=== PATIENT | male | born 1990 | race Caucasian/White ===

== ENCOUNTER → 2017-08-24 | Outpatient (CLI) | payer OTHER ==
--- NOTE | 2017-08-24 16:41 | DIAGNOSTIC IMAGING REPORT ---
SINUS CT CT DOSE: 253.14 mGycm HISTORY: CHRONIC SINUSITIS W/HEADACHE TECHNIQUE: Multiaxial CT images of the paranasal sinuses were performed and reformatted in the coronal plane without the use of contrast. A dose lowering technique was utilized adhering to the principles of ALARA. COMPARISON: None. FINDINGS: Minimal mucosal thickening within the right frontal sinus. A 6 mm retention cyst within a right ethmoid air cell. The remaining ethmoid air cells, sphenoid sinuses, and left max a sinus are clear. Minimal mucosal thickening within the floor of the right maxillary sinus. The visualized mastoid air cells are clear. No fluid levels within the paranasal sinuses. The bilateral ostiomeatal units are patent. Mild right nasal septal deviation. The right anterior clinoid is pneumatized. The visualized brain parenchyma is within normal limits. The orbits are unremarkable. IMPRESSION: 1. Minimal chronic sinus disease as described above. 2. No fluid levels within the paranasal sinuses. 3. Mild right nasal septal deviation. Electronically signed by: Boris Hermosillo M.D. 08/24/2017 4:39 PM Dictated Date/Time: 08/24/2017 4:33 PM
== END | disposition home or self-care (01) ==
LOC: C.CTS 16:14
PROVIDERS: ATTEND Physician Assistant
DX: J32.9 Chronic sinusitis, unspecified (principal); R51 Headache

== ENCOUNTER 2019-04-17 11:18 | Inpatient (IN) ==
--- OUTSIDE RECORDS SUMMARY | 2019-04-17 11:21 | External Medical Summary | Continuity of Care Document ---
:1990 Author Name Eusebia Reyez, Provider Address Unavailable Unavailable , Care Team Providers Name Role Phone Rocky Robles [email or web address] [email or web address] [place] Unavailable Unavailable Assessments Assessed Problems:Nasal septal deviationHypertrophy of both inferior nasal turbinates Problems Hypertrophy of both inferior nasal turbinates (478.0) (J34.3 ) Nasal septal deviation (470) (J34.2) Allergies and Adverse Reactions No Known Drug Allergies (Allergy) Medications No Reported Medications Refills: 0 Procedures Procedures not documented Immunizations Immunizations not documented Family History Unknown Family Member No pertinent family history (V49.89) Status: Active Com ments: Maternal Relatives (Z78.9) No pertinent family history (V49.89) Status: Active Com ments: Paternal Relatives (Z78.9) Social History - Smoking Status Former smoker Plan of Treatment Planned Observations Planned Goals not documented Results No Known Results Results not documented Encounters Appointment; Rocky Robles M.D. 27-Sep-2017 14:30 Encounter Diagnosis: Problem not documented
[2019-04-17 12:36] LABS: Appearance Urine Clear (Clear); Bilirubin Urine Negative (Negative); Blood Urine Negative (Negative); Color Urine Yellow; Glucose Urine UA Negative (Negative); Ketones Urine Negative (Negative); Leukocyte Esterase Urine Negative (Negative); Nitrite Urine Negative (Negative); Protein Urine Negative (Negative); Urobilinogen Urine Negative (Negative)
[2019-04-17 12:58] LABS: Amphetamines+Metham, Urine Neg (Neg); Barbiturates, Urine Neg (Neg); Benzodiazepine, Urine Neg (Neg); Cocaine, Urine Neg (Neg); MDMA (Ecstacy), Urine Neg (Neg); Methadone, Urine Neg (Neg); Opiate, Urine Neg (Neg); Phencyclidine, Urine Neg (Neg)
[2019-04-17 13:14] LABS: Albumin Level 4.3 gm/dl (3.4-5.0); Calcium 9.1 mg/dl (8.5-10.1); Creatinine Clr Calc Pharmacy 155.5 ml/min; Est GFR (African American) 137.8; Est GFR (Non-African American) 118.9; Potassium 3.4 mmol/L (3.5-5.1)
[2019-04-17 13:15] LABS: Acetaminophen < 2 ug/ml (10-30); Salicylate < 1.7 mg/dl (2.8-20)
[2019-04-17 13:17] LABS: Hematocrit (blood only) 43.7 % (42-52); Hemoglobin 16.1 g/dL (14.0-18.0); Mean Corpuscular Hemoglobin 31.1 pg (25-34); Mean Corpuscular Hgb Conc 36.8 g/dL (32-36); Mean Corpuscular Volume 84.4 fL (80-100); Mean Platelet Volume 10.6 fL (7.4-10.4); Platelet Count 251 K/uL (130-400); RDW Coefficient of Variation 11.7 % (11.5-14.5); RDW Standard Deviation 35.9 fL (36.4-46.3); Red Blood Count 5.18 M/uL (4.7-6.1); White Blood Count 4.55 K/uL (4.8-10.8)
[2019-04-17 13:18] LABS: Basophils # (auto) 0.03 K/uL (0-0.2); Basophils % (auto) 0.7 %; Eosinophils # (auto) 0.02 K/uL (0-0.5); Eosinophils % (auto) 0.4 %; Immature Granulocytes # (auto) 0.01 K/uL (0.00-0.02); Immature Granulocytes % (auto) 0.2 %; Lymphocytes # (auto) 1.77 K/uL (1.2-3.4); Lymphocytes % (auto) 38.9 %; Monocytes # (auto) 0.32 K/uL (0.11-0.59); Neutrophils % (auto) 52.8 %; RBC Morphology Unremarkable
[2019-04-17 13:25] LABS: Albumin Globulin Ratio 1.2 (0.9-2); Bilirubin,Total 0.6 mg/dl (0.2-1); Globulin 3.7 gm/dl (2.5-4.0); Thyroid Stimulating Hormone 2.13 uIu/ml (0.300-4.500)
--- NOTE | 2019-04-17 16:12 | Emergency Department Note ---
Entered by Harpreet Stanley acting as a scribe for Twan Boone DO History of Present Illness General Chief complaint: Mental Health Evaluation Stated complaint: MENTAL HEALTH EVAL Time Seen by Provider: 04/17/19 11:36 Source: patient History of Present Illness Provider complaint: mental health Onset (ago): hour(s) less than 1 Location: head Pain Consistency: + now resolved Quality: + other (mental health ) Associated symptoms: + denies other symptoms The patient is a 28 y/o male who presents to the emergency department for a mental health evaluation. The nurse from [facility] states that he has been having suicidal ideation for the past month and with it being worse last night. He states that he had been researching where to get a gun. The patient notes that he overdosed on blood pressure medication once in the past roughly 7 years ago when he was still living in [facility] which he did voluntary inpatient treatment for. The nurse notes that he came from [facility] at [facility]. 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 The patient expressed that he is having a lot of pressure with school and went to [facility] to get help with the stress and possibly an excuses for class. He notes he exaggerated the SI at [facility] in order to get the class assistance and they sent him to the ED. The patient denies any other symptoms. Home Medications Home Medications Medication Instructions Recorded Confirmed Type No Known Home Medications 04/17/19 04/17/19 History Allergies Allergy/AdvReac Type Severity Reaction Status Date / Time No Known Allergies Allergy Unverified 04/17/19 11:57 Past Med/Surg History Medical History No pertinent family history Social History Feels Safe at Home: Yes Smoking Status: Former smoker Review of Systems See HPI for pertinent positives & negatives. and A total of 10 systems reviewed and were otherwise negative Physical Exam Vital Signs Vital Signs - 24 hr 04/17/19 11:28 04/17/19 14:18 Temperature 36.7 C Temperature Source Oral Sepsis Recent Fever Within 48 Hours No Sepsis Action Taken by Nursing No Action Required Pulse Rate 66 Pulse Rate [Left Finger] 66 Respiratory Rate 16 20 Respiratory Effort / Characteristics Non-Labored Spontaneous Non-Labored Spontaneous Respiratory Depth Normal Normal Respiratory Pattern Regular Blood Pressure 173/79 H Blood Pressure [Left Arm] 133/83 Blood Pressure Mean 110 Blood Pressure Mean [Left Arm] 99 Blood Pressure Position Sitting Pulse Oximetry 99 97 Oxygen Delivery Method Room Air Room Air GENERAL: Patient is awake, alert, and in no acute distress.Patient is resting comfortably and showing no signs of anxiety EYES: The conjunctivae are clear. The pupils are round and reactive. EARS, NOSE, MOUTH AND THROAT: The nose is without any evidence of any deformity. Mucous membranes are moist.Tongue is midline NECK: The neck is nontender and supple. RESPIRATORY: Normal respiratory effort is noted. There is no evidence of wheezing rhonchi or rales to auscultation. CARDIOVASCULAR: Regular rate and rhythm noted. There no murmurs rubs or gallops normal S1 normal S2 GASTROINTESTINAL: The abdomen is soft. Bowel sounds are present in all quadr ants. Abdomen is nontender. MUSCULOSKELETAL/EXTREMITIES: There is no evidence of gross deformity. Full range of motion is noted in the hips and shoulders. SKIN: There is no obvious evidence of any rash. There are no petechiae, pallor or cyanosis noted. NEUROLOGIC: Patient is awake alert and oriented x3. PSYCH: Pt was awake and alert, makes good eye contact on exam. Denies SI. Admits to many stressors Course 1208: Past medical records reviewed. The patient was evaluated in room A05. A complete history and physical exam was performed. 1437: I spoke with the psychiatric immigration case manager regarding the patient. CAPS noted 2 overdose attempts and increased depression with negative feelings towards [facility] from the patient beyond what he informed us of. 1700: I spoke with the patient and updated him on the treatment plan. []: The patient was accepted to [address] [place] [address]. Medical Decision Making Differential Diagnosis differential includes toxic ingestions, self-mutilation, suicidal ideation, suicide attempt, depression. Medical Records Attestation: I reviewed the patient's medical records. Home Medications Current Medication List: was personally reviewed by me Laboratory Data Attestation: I reviewed the patient's lab results. Result diagrams: 04/17/19 12:35 04/17/19 12:35 Lab Results 04/17/19 04/17/19 04/17/19 Range/Units 12:06 12:06 12:35 WBC 4.55 L (4.8-10.8) K/uL RBC 5.18 (4.7-6.1) M/uL Hgb 16.1 (14.0-18.0) g/dL Hct 43.7 (42-52) % MCV 84.4 (80-100) fL MCH 31.1 (25-34) pg MCHC 36.8 H (32-36) g/dL RDW Std Deviation 35.9 L (36.4-46.3) fL RDW Coeff of Thomas 11.7 (11.5-14.5) % Plt Count 251 (130-400) K/uL MPV 10.6 H (7.4-10.4) fL Immature Gran % (Auto) 0.2 % Neut % (Auto) 52.8 % Lymph % (Auto) 38.9 % [place] % (Auto) 7.0 % Eos % (Auto) 0.4 % Baso % (Auto) 0.7 % Immature Gran # (Auto) 0.01 (0.00-0.02) K/uL Neut # (Auto) 2.40 (1.4-6.5) K/uL Lymph # (Auto) 1.77 (1.2-3.4) K/uL [place] # (Auto) 0.32 (0.11-0.59) K/uL Eos # (Auto) 0.02 (0-0.5) K/uL Baso # (Auto) 0.03 (0-0.2) K/uL RBC Morphology Unremarkable Sodium (136-145) mmol/L Potassium (3.5-5.1) mmol/L Chloride (98-107) mmol/L Carbon Dioxide (21-32) mmol/L Anion Gap (3-11) BUN (7-18) mg/dl Creatinine (0.6-1.4) mg/dl Est Cr Clr Drug Dosing ml/min Est GFR ( Amer) Est GFR (Non-Af Amer) BUN/Creatinine Ratio (10-20) Glucose (70-99) mg/dl Calcium (8.5-10.1) mg/dl Total Bilirubin (0.2-1) mg/dl AST (15-37) U/L ALT (12-78) U/L Alkaline Phosphatase (45-117) U/L Total Protein (6.4-8.2) gm/dl Albumin (3.4-5.0) gm/dl Globulin (2.5-4.0) gm/dl Albumin/Globulin Ratio (0.9-2) TSH (0.300-4.500) uIu/ml Urine Color Yellow Urine Appearance Clear (Clear) Urine pH 8.0 H (4.5-7.5) Ur Specific [place] 1.010 (1.000-1.030) Urine Protein Negative (Negative) Urine Glucose (UA) Negative (Negative) Urine Ketones Negative (Negative) Urine Blood Negative (Negative) Urine Nitrite Negative (Negative) Urine Bilirubin Negative (Negative) Urine Urobilinogen Negative (Negative) Ur Leukocyte Esterase Negative (Negative) Salicylates (2.8-20) mg/dl Urine Opiates Screen Neg (Neg) Ur Methadone, Qual Neg (Neg) Acetaminophen (10-30) ug/ml Urine Barbiturates Neg (Neg) Ur Phencyclidine (PCP) Neg (Neg) U Amphetamin/Meth Scrn Neg (Neg) MDMA (Ecstasy) Screen Neg (Neg) U Benzodiazepines Scrn Neg (Neg) Ur Cocaine Metabolite Neg (Neg) U Marijuana (THC) Screen Neg (Neg) Ethyl Alcohol mg/dL (0-3) mg/dl 04/17/19 04/17/19 04/17/19 Range/Units 12:35 12:35 12:35 WBC (4.8-10.8) K/uL RBC (4.7-6.1) M/uL Hgb (14.0-18.0) g/dL Hct (42-52) % MCV (80-100) fL MCH (25-34) pg MCHC (32-36) g/dL RDW Std Deviation (36.4-46.3) fL RDW Coeff of Thomas (11.5-14.5) % Plt Count (130-400) K/uL MPV (7.4-10.4) fL Immature Gran % (Auto) % Neut % (Auto) % Lymph % (Auto) % [place] % (Auto) % Eos % (Auto) % Baso % (Auto) % Immature Gran # (Auto) (0.00-0.02) K/uL Neut # (Auto) (1.4-6.5) K/uL Lymph # (Auto) (1.2-3.4) K/uL [place] # (Auto) (0.11-0.59) K/uL Eos # (Auto) (0-0.5) K/uL Baso # (Auto) (0-0.2) K/uL RBC Morphology Sodium 137 (136-145) mmol/L Potassium 3.4 L (3.5-5.1) mmol/L Chloride 103 (98-107) mmol/L Carbon Dioxide 27 (21-32) mmol/L Anion Gap 7.0 (3-11) BUN 10 (7-18) mg/dl Creatinine 0.83 (0.6-1.4) mg/dl Est Cr Clr Drug Dosing 155.5 ml/min Est GFR ( Amer) 137.8 Est GFR (Non-Af Amer) 118.9 BUN/Creatinine Ratio 12.0 (10-20) Glucose 89 (70-99) mg/dl Calcium 9.1 (8.5-10.1) mg/dl Total Bilirubin 0.6 (0.2-1) mg/dl AST 27 (15-37) U/L ALT 54 (12-78) U/L Alkaline Phosphatase 72 (45-117) U/L Total Protein 8.0 (6.4-8.2) gm/dl Albumin 4.3 (3.4-5.0) gm/dl Globulin 3.7 (2.5-4.0) gm/dl Albumin/Globulin Ratio 1.2 (0.9-2) TSH 2.130 (0.300-4.500) uIu/ml Urine Color Urine Appearance (Clear) Urine pH (4.5-7.5) Ur Specific [place] (1.000-1.030) Urine Protein (Negative) Urine Glucose (UA) (Negative) Urine Ketones (Negative) Urine Blood (Negative) Urine Nitrite (Negative) Urine Bilirubin (Negative) Urine Urobilinogen (Negative) Ur Leukocyte Esterase (Negative) Salicylates < 1.7 L (2.8-20) mg/dl Urine Opiates Screen (Neg) Ur Methadone, Qual (Neg) Acetaminophen < 2 L (10-30) ug/ml Urine Barbiturates (Neg) Ur Phencyclidine (PCP) (Neg) U Amphetamin/Meth Scrn (Neg) MDMA (Ecstasy) Screen (Neg) U Benzodiazepines Scrn (Neg) Ur Cocaine Metabolite (Neg) U Marijuana (THC) Screen (Neg) Ethyl Alcohol mg/dL < 3.0 (0-3) mg/dl Blood Pressure Blood Pressure Findings: Elevated blood pressure Blood Pressure Disposition: Referred to patients primary care provider ALBINO Rahman The patient is a 28-year-old male who presented to the emergency department for mental health evaluation. The patient went to [facility] for an evaluation and was sent to the emergency department immediately because of his degree of symptomatology. When he arrived at the emergency department he tried to downplay the degree of his suicidal ideation. The patient was very high risk as he has had suicidal attempts in the past. The patient was medically cleared in the emergency department. The patient was evaluated by the mental health immigration case manager in the emergency department. We reviewed the patient's evaluation from [facility] with him. The patient has had significant anxiety recently. I do feel he is at high risk and should be treated as an inpatient at this time. The patient ultimately was agreeable for inpatient management. Currently the patient is being referred to [facility] for inpatient management. 201 Impression & Plan Depression, Anxiety, Suicidal ideations Discharge Plan Visit Data Chief Complaint: Mental Health Evaluation Stated Complaint: MENTAL HEALTH EVAL ED Provider: Twan Boone Discharge Problem: Depression, Anxiety, Suicidal ideations Patient Disposition: Transfer Behavioral Health Fac Condition: Good Forms Stand Alone Forms: My [facility] [employer] Prescriptions Prescriptions: No Action No Known Home Medications RF: 0 Referrals Referrals: PCP,NO [Primary Care Provider] - Discharge Problem: Depression Qualifiers: Depression Type: unspecified Qualified Code(s): F32.9 - Major depressive disorder, single episode, unspecified The alejandra's documentation has been prepared under my direction and personally reviewed by me in its entirety. I confirm that the note above accurately reflects all work, treatment, procedures, and medical decision making performed by me.
[2019-04-17] MEDS ORDERED: ALUMINUM/MAGNESIUM SUSP 30 ML UDC PO PRN (18:44)
[2019-04-17] MEDS ORDERED: ACETAMINOPHEN 325 MG TAB PO PRN (18:44)
[2019-04-17] MEDS ORDERED: SODIUM CHLORIDE 0.65% NA SOLN 45 ML (OCEAN) PRN (18:44)
[2019-04-17] MEDS ORDERED: MAGNESIUM HYDROXIDE SUSP 30 ML UDC PO PRN (18:44)
[2019-04-17] MEDS ORDERED: BISMUTH SUBSALICYLATE PER ML OMNICELL CHARGE PO PRN (18:44)
--- NOTE | 2019-04-18 13:10 | History & Physical ---
Date of Service April 18, 2019 Impression / Recommendations (1) Suicidal ideations: 04/18/19 -Today, the patient reports that he is not having further thoughts of suicide. He also notes that he was exaggerating his suicidal thoughts when discussing his situation at the [employer] [facility] [facility] student counseling center and the hope of achieving secondary gain; i.e., a medical excuse for the course that he is failing or has failed. -The patient reports that he never had any actual suicidal plan or intent, and says that he reference purchasing a gun because he knew that the guns could be easily purchased in the [place] and had not anticipated that his report in this regard would generate alarm among healthcare providers. - -The patient acknowledges that, in the past, he has engaged in self-injurious behaviors. He notes that these instances occurred more than 7 years ago, under much different circumstances, including the fact that he lacked longer term perspective and, at the time, was much more immature . -The patient is future oriented and clearly identifies long-term goals for the future. Present on Admission?: Yes (2) Adjustment disorder with mixed anxiety and depressed mood: 03/19/19 -The patient reports the acute onset of depressed mood and anxious distress associated with specific situational stressors. The nature and degree of the patient's depression and anxiety are not consistent with a diagnosis of major depression. At the same time, the patient's distress has been interfering with his ability to concentrate and focus at school. -We discussed various treatment options, including antidepression/antianxiety medications. The patient tells me that his primary goal had been to see if he could secure certain accommodations in order to preserve his class standing at [employer], and the service of remaining "marketable" in terms of finding employment. -After considering options, the patient said that he would prefer to focus on individual counseling and supportive therapy, rather than medications. Present on Admission?: Yes Inventory Assets Strengths: Intelligent. Supportive family. Supportive marriage. Successful student. Good social skills. Effective communication skills. Needs: Improved individual coping strategies. Supportive counseling. Risk Factors Assessment The patient reports that he has a history of past suicide attempts, but notes that these occurred when he was much younger and were not related to specific stressors. He denies a history of depression, apart from the specific stressors identified. Financial stress. Academic difficulties. Cultural "outsider" status in his country of origin. Male: Yes : Yes Do You Have Access To A Gun?: No Health Problems: No Mental Health Diagnoses: Yes Substance Use Disorders: No Previous Attempt: Yes Previous Attempt; Highly Lethal: No Previous Attempt; Planned: No Previous Attempt; Didn't Tell Anyone: No Family History of Suicide: No Previous Psychiatric Hospitalization: Yes Hopelessness: No Smoker: No Protective Factors Assessment Episcopalian Beliefs: No : Yes Responsible for Young Children: No Employed: No Stable Relationships: Yes Supportive Family: Yes Good Rapport with Provider: No Absence of Any Risk Factors Above: No Psychiatric History Identifying Data EMMA GONZALEZ is a 28-year-old M who currently lives in [place] with his . He reports a past history of adjustment disorder symptoms, and was admitted on 04/17/19 18:44 on a 201 voluntary agreement after he told a counselor that he had had thoughts of acquiring a gun and shooting himself. Chief Complaint "I was just feeling overwhelmed." History of Present Illness The patient is a 28 y/o male who presented to the emergency department for a mental health evaluation [facility]. The patient notes that he had disclosed to a counselor at [facility] that he had been having thoughts of suicide. These thoughts included thoughts of acquiring a gun and shooting himself. The patient reports that he has not been feeling depressed, but he has been feeling overwhelmed and expresses difficulty adjusting to a series of life stressors. He is currently a senior in chemical engineering at [employer] and notes that throughout his academic career he has maintained a grade point average that has been on the top 2% of his class. However, during the current (fall) semester, he made a decision to focus less on schoolwork and more heavily on applying for a job. He notes that he set out approximately 80 applications and was not offered a single interview. Separately, at a "job fair," the patient was offered 3 interviews. 2 of the interviews were for jobs that he felt were not suitable, and the third interview was, in fact, for a job that he really wanted. However, he was not selected. As a result of his focus on applying for jobs he ended up doing poorly in 1 of his classes and is now feeling very discouraged because he not only did not secure a job that he managed to diminish his grade point average and class standing. Complicating the above referenced situational difficulty is the fact that he is fairly heavily in debt to his family and to financial institutions because of the high cost of his education. The patient's family lives in [place], and because of the current political and economic climate the exchange weight has become unfavorable so that his family is having to spend a higher percentage of their income to support him and his college career. Further, the family's business and [place] is not doing well which adds additional financial stress to the family. The patient is , and his 's parents are helping with certain expenses, such as his 's tuition fees. However, within the above context the patient is feeling a great deal of pressure to find a job and be in a position to support himself and in a position to start paying back some of his debt. 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 An additional stressor is that the patient feels that he would be unable to return to live in [place] for a number of reasons, including the fact that he is not bahai and has a number of issues with the cultural norms in [place] at the present time. The patient acknowledges that approximately 7 while he was still living in [place], he took a deliberate overdose of blood pressure medications. He attributes this behavior to immaturity and situational difficulties. He also reports that at around the same time he cut his wrist as part of a suicide attempt. However, he notes that, for the most part, his life has been going well until recently. He is happily and enjoys life Past Psychiatric History Previous Psych History: The patient notes that he overdosed on blood pressure medication once in the past roughly 7 years ago when he was still living in [place] which he did voluntary inpatient treatment. Current Psychiatric Diagnosis: Adjustment disorder with mixed emotional fe atures. Outpatient Services: None Do You Have Access To A Gun?: No History of Previous Suicide Attempt: Yes Describe Attempts in the Past: Overdose and cut left wrist that required sutures Past Medication Trials: None. Past Head Trauma/Neuro History History of Concussion/Seizure: No Allergies Allergy/AdvReac Type Severity Reaction Status Date / Time No Known Allergies Allergy Unverified 04/17/19 11:57 Home Medications Home Medications Medication Instructions Recorded Confirmed Type No Known Home Medications 04/17/19 04/17/19 History Family History Family History of: Depression (Patient reports that he believes that his sister is suffering from depression. She has a degenerative neurologic disease and he does not believe she is being treated for depression.) Family Mental Health History Comment: The patient reports no other family history of psychiatric illness. Alcohol History Hx of Alcohol Use Over the Past 12 Months: No AUDIT Total Score: 0 Smoking Use Have You Smoked or Used Tobacco Products in the Last 30 Days: No Smoking Status: Former smoker Substance History Hx of Prescription Med Misuse Over the Past 12 Months: No Hx of Over the Counter Med Misuse Over the Past 12 Months: No Hx of Inhalent Misuse Over the Past 12 Months: No Hx of Organic Substance Use Over the Past 12 Months: No Hx of Illegal Substances/Street Drug Use Over Past 12 Months: No Problems as a Result of Past Substance Use: None Identified Personal History Living Arrangements: Apartment Living Arrangements Comments: Lives in an apartment with his . The couple has no children. Born In: [place] Childhood: The patient was raised in [place] by both parents and has several siblings. Highest Grade Completed: Some College Highest Grade Completed Comment: Currently in last semester at [employer] but will have 3 credits of gen ed in order to graduate, has been looking for a job but no sucess yet. Employment Status: Ui Engineer Temporary (Although not currently employed, the patient notes that he is typically worked part-time, most recently approximately 15 hours a week, to help with school and living expenses.) Marital Status: Beliefs That Will Affect Care: None Current Legal Problems: No Hx Legal Problems: No Hx Traumatic Life Events: No Patient History Medical History No pertinent family history Social History Preferred Language: Surinamese Communication Ability: Effective Special Inspector Required: No Beliefs That Will Affect Care: None Feels Safe at Home: Yes Smoking Status: Former smoker Review of Systems Review of Systems: All systems reviewed & are unremarkable except as noted in HPI & below The somatic history, review of systems, and physical examination completed by Dr. Twan Boone has been reviewed and is accepted Physical Exam Psychiatric: Orientation: alert and oriented x 3 Apperance: appropriately dressed Eye Contact: good eye contact Motor Behavior: steady gait and station Speech: normal rate/rhythm/volume of speech Affect: euthymic affect Feeling better. Thought Process: goal directed thought process, linear/logical thought process and clear/coherent thought process Thought Content: reality based without delusions Suicidal Thoughts: denies suicidal thoughts and denies suicidal plan Homicidal Thoughts: denies homicidal th oughts Hallucinations: no auditory hallucinations Cognition: recent memory grossly intact, remote memory grossly intact and language grossly intact Estimated Intelligence: + above average estimated intelligence Insight: + fair insight Judgement: + fair judgement Vital Signs (Past 24 Hours): Last Vital Signs Temp 36.7 C 04/18/19 07:02 Pulse 86 04/18/19 07:03 Resp 18 04/18/19 07:02 BP 114/77 04/18/19 07:03 Pulse Ox 97 04/17/19 20:36 Results & Data Laboratory Results Laboratory Results - last 24 hr 04/17/19 04/17/19 04/17/19 12:35 12:35 12:35 WBC 4.55 L RBC 5.18 Hgb 16.1 Hct 43.7 MCV 84.4 MCH 31.1 MCHC 36.8 H RDW Std Deviation 35.9 L RDW Coeff of Thomas 11.7 Plt Count 251 MPV 10.6 H Immature Gran % (Auto) 0.2 Neut % (Auto) 52.8 Lymph % (Auto) 38.9 [place]lands % (Auto) 7.0 Eos % (Auto) 0.4 Baso % (Auto) 0.7 Immature Gran # (Auto) 0.01 Neut # (Auto) 2.40 Lymph # (Auto) 1.77 Highlands # (Auto) 0.32 Eos # (Auto) 0.02 Baso # (Auto) 0.03 RBC Morphology Unremarkable Sodium 137 Potassium 3.4 L Chloride 103 Carbon Dioxide 27 Anion Gap 7.0 BUN 10 Creatinine 0.83 Est Cr Clr Drug Dosing 155.5 Est GFR ( Amer) 137.8 Est GFR (Non-Af Amer) 118.9 BUN/Creatinine Ratio 12.0 Glucose 89 Calcium 9.1 Total Bilirubin 0.6 AST 27 ALT 54 Alkaline Phosphatase 72 Total Protein 8.0 Albumin 4.3 Globulin 3.7 Albumin/Globulin Ratio 1.2 TSH 2.130 Salicylates < 1.7 L Acetaminophen < 2 L Ethyl Alcohol mg/dL 04/17/19 12:35 WBC RBC Hgb Hct MCV MCH MCHC RDW Std Deviation RDW Coeff of Thomas Plt Count MPV Immature Gran % (Auto) Neut % (Auto) Lymph % (Auto) Highlands % (Auto) Eos % (Auto) Baso % (Auto) Immature Gran # (Auto) Neut # (Auto) Lymph # (Auto) Highlands # (Auto) Eos # (Auto) Baso # (Auto) RBC Morphology Sodium Potassium Chloride Carbon Dioxide Anion Gap BUN Creatinine Est Cr Clr Drug Dosing Est GFR ( Amer) Est GFR (Non-Af Amer) BUN/Creatinine Ratio Glucose Calcium Total Bilirubin AST ALT Alkaline Phosphatase Total Protein Albumin Globulin Albumin/Globulin Ratio TSH Salicylates Acetaminophen Ethyl Alcohol mg/dL < 3.0 Current Inpatient Medications Current Inpatient Medications: Current Inpatient Medications Acetaminophen (Tylenol) 650 mg PO Q4H PRN PRN Reason: Headache or Minor Fever Stop: 05/17/19 18:43 Al Hydrox/Mg Hydrox/Simethicone (Maalox) 30 ml PO Q4H PRN PRN Reason: GI Upset Stop: 05/17/19 18:43 Bismuth Subsalicylate (Kaopectate) 15 ml PO PRN PRN PRN Reason: Loose Stool Stop: 05/17/19 18:43 Hydroxyzine HCl (Vistaril) 50 mg PO HSZ PRN PRN Reason: Insomnia Stop: 05/17/19 18:43 Hydroxyzine HCl (Vistaril) 25 mg PO Q4H PRN PRN Reason: Anxiety Stop: 05/17/19 18:43 Magnesium Hydroxide (Milk Of Magnesia) 30 ml PO DAILY PRN PRN Reason: Constipation Stop: 05/17/19 18:43 Sodium Chloride ([place] Nasal) 1 - 2 sprays NA PRN PRN PRN Reason: Nasal Dryness/Congestion Stop: 05/17/19 18:43 CPT Code CPT Code Initial Hospital Care: 10333
--- NOTE | 2019-04-19 08:53 | Psychiatric Progress Note ---
Date of Service April 19, 2019 Impression / Recommendations (1) Suicidal ideations: 04/18/19 -Today, the patient reports that he is not having further thoughts of suicide. He also notes that he was exaggerating his suicidal thoughts when discussing his situation at the [facility] student counseling center and the hope of achieving secondary gain; i.e., a medical excuse for the course that he is failing or has failed. -The patient reports that he never had any actual suicidal plan or intent, and says that he reference purchasing a gun because he knew that the guns could be easily purchased in the [place] and had not anticipated that his report in this regard would generate alarm among healthcare providers. - -The patient acknowledges that, in the past, he has engaged in self-injurious behaviors. He notes that these instances occurred more than 7 years ago, under much different circumstances, including the fact that he lacked longer term perspective and, at the time, was much more immature . -The patient is future oriented and clearly identifies long-term goals for the future. 04/19 - Pt denies suicidal ideation at this time, but is unable to explain how is situation has changed or how he plans to handle stressors differently in the future - Based on new information obtained from [facility], it was determined that the risk of discharge today was too great, and that patient continues to be at high risk of harm to himself if he is discharged without adequate mitigation of risk factors (2) Adjustment disorder with mixed anxiety and depressed mood: 04/18/19 -The patient reports the acute onset of depressed mood and anxious distress associated with specific situational stressors. The nature and degree of the patient's depression and anxiety are not consistent with a diagnosis of major depression. At the same time, the patient's distress has been interfering with his ability to concentrate and focus at school. -We discussed various treatment options, including antidepression/antianxiety medications. The patient tells me that his primary goal had been to see if he could secure certain accommodations in order to preserve his class standing at [facility] [employer], and the service of remaining "marketable" in terms of finding employment. -After considering options, the patient said that he would prefer to focus on individual counseling and supportive therapy, rather than medications. 04/19 - Agree with above diagnoses; however, risk of harm to self remains high - Will not pursue medication initiation at this time, but patient would benefit from additional time on the unit and ongoing therapeutic intervention - Pt does have a therapy appointment scheduled at [facility] 04/24 Inventory Assets Strengths: Intelligent. Supportive family. Supportive marriage. Successful student. Good social skills. Effective communication skills. Needs: Improved individual coping strategies. Supportive counseling. Risk Factors Assessment Male: Yes : Yes Do You Have Access To A Gun?: No Health Problems: No Mental Health Diagnoses: Yes Substance Use Disorders: No Previous Attempt: Yes Previous Attempt; Highly Lethal: No Previous Attempt; Planned: No Previous Attempt; Didn't Tell Anyone: No Family History of Suicide: No Previous Psychiatric Hospitalization: Yes Hopelessness: No Smoker: No Protective Factors Assessment Buddhism Beliefs: No : Yes Responsible for Young Children: No Employed: No Stable Relationships: Yes Supportive Family: Yes Good Rapport with Provider: No Absence of Any Risk Factors Above: No Interval History Identifying Information EMMA GONZALEZ is a 28-year-old M who currently lives in [place] with his . He reports a past history of adjustment disorder symptoms, and was admitted on 04/17/19 18:44 on a 201 voluntary agreement after he told a counselor that he had had thoughts of acquiring a gun and shooting himself. Chief Complaint "Yesterday was good, awesome!" Review of Systems Notes Constitutional: denied Cardiovascular: denied Respiratory: denied Gastrointestinal: denied Neurological: denied Psychiatric: denies symptoms other than stated above Total of at least 10 systems reviewed, pertinent positives as above and in HPI. Sleep Information Total Hours of Sleep: 6 Sleep Comments: pt on q-15 minute checks Meal Information Percent Meal Consumed - Breakfast: 100 Percent Meal Consumed - Lunch: 100 Percent Meal Consumed - Dinner: 90 Subjective Subjective Patient was seen & assessed and interval progress reviewed with nursing and social work. Staff report the patient received a visit from his last evening. He has been pleasant in interactions on the unit. Additional informat ion was received from [facility], indicating greater risk of harm to self than initially indicated in patient reports. Pt does have a meeting with his scheduled for today. Pt was seen today to assess progress since admission. Pt shares with this provider that he is "awesome" today. When asked to briefly share events contributing to his admission, the patient states "there was a lot of stress and pressure to keep up with my coursework." Pt states that he is concerned about how his reports were received at [facility], as "I wanted to clearly express myself, so I feel I might have exaggerated." Pt states that prior to reaching out for help, he had been experiencing thoughts of "disappointment in myself, I felt powerless, hopeless." Pt reports that he "didn't see life from my own perspective, I was always making decisions based on how I thought I would be judged by others." When asked about a specific plan to end his life, the patient denies this. When specifically asked about reports indicating thoughts to use a gun, the patient states, "it was just a thought, I didnt' have a plan." Pt continued to explain his reasoning, which to him was that he only had "thoughts", that led to research into purchasing a gun. He states, "I was just researching the different types, what would happen if a person was shot with this one versus that, but I didn't have a plan. When asked what specifically the patient feels has changed since his admission, he is unable to provide clear explanation of risk factors that have been mitigated. Pt is requesting discharge today, which this provider stated was not likely an option. He later requested discharge after his meeting, which this provider again said would not be a possibility given the additional information that our unit had received. Pt was not pleased with this response. He does deny SI at this time, but cannot yet explain how he would manage stressors in a healthier way in the future. He denies other needs or concerns at this time. Physical Exam Psychiatric Orientation: alert, oriented x 3 and cooperative (superficially) Apperance: appropriately dressed (casually and neatly, in sweater and jeans), appropriately groomed and appeared stated age Eye Contact: good eye contact Motor Behavior: steady gait and station and no abnormal motor movements Speech: normal rate/rhythm/volume of speech Affect: euthymic affect, + irritable affect (only after being informed he would not be discharged today) and mood congruent with affect (but incongruent with severity of reports provided from outpatient sources) Mood: no depressed mood and no anxious mood Thought Process: goal directed thought process and clear/coherent thought process Thought Content: + preoccupation (perceived injustices related to the university system) and + cognitive distortions; no hopelessness Suicidal Thoughts: denies suicidal thoughts Homicidal Thoughts: denies homicidal thoughts Hallucinations: no auditory hallucinations and no visual hallucinations Cognition: remote memory grossly intact, attention grossly intact and language grossly intact Estimated Intelligence: consistent with education level Insight: + poor insight Judgement: + poor judgement Vital Signs (Past 24 Hours) Last Vital Signs Temp 36.7 C 04/19/19 06:58 Pulse 73 04/19/19 06:59 Resp 18 04/19/19 06:58 BP 123/81 04/19/19 06:59 Pulse Ox 97 04/17/19 20:36 Results & Data Current Inpatient Medications Current Inpatient Medications: Current Inpatient Medications Acetaminophen (Tylenol) 650 mg PO Q4H PRN PRN Reason: Headache or Minor Fever Stop: 05/17/19 18:43 Al Hydrox/Mg Hydrox/Simethicone (Maalox) 30 ml PO Q4H PRN PRN Reason: GI Upset Stop: 05/17/19 18:43 Bismuth Subsalicylate (Kaopectate) 15 ml PO PRN PRN PRN Reason: Loose Stool Stop: 05/17/19 18:43 Hydroxyzine HCl (Vistaril) 50 mg PO HSZ PRN PRN Reason: Insomnia Stop: 05/17/19 18:43 Hydroxyzine HCl (Vistaril) 25 mg PO Q4H PRN PRN Reason: Anxiety Stop: 05/17/19 18:43 Magnesium Hydroxide (Milk Of Magnesia) 30 ml PO DAILY PRN PRN Reason: Constipation Stop: 05/17/19 18:43 Sodium Chloride ([place] Nasal) 1 - 2 sprays NA PRN PRN PRN Reason: Nasal Dryness/Congestion Stop: 05/17/19 18:43 Mental Health & Subst Abuse Tx Therapist Name of Therapist: [facility] - Today was walk in urgent appt at [facility], seen by Laura Kurtz Machine Silk Screen Printer Name of Machine Silk Screen Printer: None Post Discharge Appointments Primary Care Physician Name Of Family Doctor: None CPT Code CPT Code 32930
--- NOTE | 2019-04-19 08:54 | Psychiatric Progress Note ---
Date of Service April 19, 2019 Impression / Recommendations (1) Suicidal ideations: 04/18/19 -Today, the patient reports that he is not having further thoughts of suicide. He also notes that he was exaggerating his suicidal thoughts when discussing his situation at the [facility] student counseling center and the hope of achieving secondary gain; i.e., a medical excuse for the course that he is failing or has failed. -The patient reports that he never had any actual suicidal plan or intent, and says that he reference purchasing a gun because he knew that the guns could be easily purchased in the [place] and had not anticipated that his report in this regard would generate alarm among healthcare providers. - -The patient acknowledges that, in the past, he has engaged in self-injurious behaviors. He notes that these instances occurred more than 7 years ago, under much different circumstances, including the fact that he lacked longer term perspective and, at the time, was much more immature . -The patient is future oriented and clearly identifies long-term goals for the future. (2) Adjustment disorder with mixed anxiety and depressed mood: 03/19/19 -The patient reports the acute onset of depressed mood and anxious distress associated with specific situational stressors. The nature and degree of the patient's depression and anxiety are not consistent with a diagnosis of major depression. At the same time, the patient's distress has been interfering with his ability to concentrate and focus at school. -We discussed various treatment options, including antidepression/antianxiety medications. The patient tells me that his primary goal had been to see if he could secure certain accommodations in order to preserve his class standing at [employer], and the service of remaining "marketable" in terms of finding employment. -After considering options, the patient said that he would prefer to focus on individual counseling and supportive therapy, rather than medications. Inventory Assets Strengths: Intelligent. Supportive family. Supportive marriage. Successful student. Good social skills. Effective communication skills. Needs: Improved individual coping strategies. Supportive counseling. Risk Factors Assessment Male: Yes : Yes Do You Have Access To A Gun?: No Health Problems: No Mental Health Diagnoses: Yes Substance Use Disorders: No Previous Attempt: Yes Previous Attempt; Highly Lethal: No Previous Attempt; Planned: No Previous Attempt; Didn't Tell Anyone: No Family History of Suicide: No Previous Psychiatric Hospitalization: Yes Hopelessness: No Smoker: No Protective Factors Assessment Restorationism Beliefs: No : Yes Responsible for Young Children: No Employed: No Stable Relationships: Yes Supportive Family: Yes Good Rapport with Provider: No Absence of Any Risk Factors Above: No Interval History Chief Complaint "[]". Review of Systems Sleep Information Total Hours of Sleep: 6 Sleep Comments: pt on q-15 minute checks Meal Information Percent Meal Consumed - Breakfast: 100 Percent Meal Consumed - Lunch: 100 Percent Meal Consumed - Dinner: 90 Subjective Subjective Patient was seen & assessed and interval progress reviewed with [treatment team] [nursing and social work] Physical Exam Vital Signs (Past 24 Hours) Last Vital Signs Temp 36.7 C 04/19/19 06:58 Pulse 73 04/19/19 06:59 Resp 18 04/19/19 06:58 BP 123/81 04/19/19 06:59 Pulse Ox 97 04/17/19 20:36 Results & Data Current Inpatient Medications Current Inpatient Medications: Current Inpatient Medications Acetaminophen (Tylenol) 650 mg PO Q4H PRN PRN Reason: Headache or Minor Fever Stop: 05/17/19 18:43 Al Hydrox/Mg Hydrox/Simethicone (Maalox) 30 ml PO Q4H PRN PRN Reason: GI Upset Stop: 05/17/19 18:43 Bismuth Subsalicylate (Kaopectate) 15 ml PO PRN PRN PRN Reason: Loose Stool Stop: 05/17/19 18:43 Hydroxyzine HCl (Vistaril) 50 mg PO HSZ PRN PRN Reason: Insomnia Stop: 05/17/19 18:43 Hydroxyzine HCl (Vistaril) 25 mg PO Q4H PRN PRN Reason: Anxiety Stop: 05/17/19 18:43 Magnesium Hydroxide (Milk Of Magnesia) 30 ml PO DAILY PRN PRN Reason: Constipation Stop: 05/17/19 18:43 Sodium Chloride ([place] Nasal) 1 - 2 sprays NA PRN PRN PRN Reason: Nasal Dryness/Congestion Stop: 05/17/19 18:43 Mental Health & Subst Abuse Tx Therapist Name of Therapist: VERENICE - Today was walk in urgent appt at [facility], seen by Laura Kurtz Assorter Laundry Name of Assorter Laundry: None Post Discharge Appointments Primary Care Physician Name Of Family Doctor: None CPT Code CPT Code 89930 [id number]
--- NOTE | 2019-04-20 08:51 | Psychiatric Progress Note ---
Date of Service April 20, 2019 Impression / Recommendations (1) Suicidal ideations: 04/18/19 -Today, the patient reports that he is not having further thoughts of suicide. He also notes that he was exaggerating his suicidal thoughts when discussing his situation at the [facility] student counseling center and the hope of achieving secondary gain; i.e., a medical excuse for the course that he is failing or has failed. -The patient reports that he never had any actual suicidal plan or intent, and says that he reference purchasing a gun because he knew that the guns could be easily purchased in the [place] and had not anticipated that his report in this regard would generate alarm among healthcare providers. - -The patient acknowledges that, in the past, he has engaged in self-injurious behaviors. He notes that these instances occurred more than 7 years ago, under much different circumstances, including the fact that he lacked longer term perspective and, at the time, was much more immature . -The patient is future oriented and clearly identifies long-term goals for the future. 04/19 - Pt denies suicidal ideation at this time, but is unable to explain how is situation has changed or how he plans to handle stressors differently in the future - Based on new information obtained from [facility], it was determined that the risk of discharge today was too great, and that patient continues to be at high risk of harm to himself if he is discharged without adequate mitigation of risk factors 04/20 - Pt denied SI again today (2) Adjustment disorder with mixed anxiety and depressed mood: 04/18/19 -The patient reports the acute onset of depressed mood and anxious distress associated with specific situational stressors. The nature and degree of the patient's depression and anxiety are not consistent with a diagnosis of major depression. At the same time, the patient's distress has been interfering with his ability to concentrate and focus at school. -We discussed various treatment options, including antidepression/antianxiety medications. The patient tells me that his primary goal had been to see if he could secure certain accommodations in order to preserve his class standing at [employer], and the service of remaining "marketable" in terms of finding employment. -After considering options, the patient said that he would prefer to focus on individual counseling and supportive therapy, rather than medications. 04/19 - Agree with above diagnoses; however, risk of harm to self remains high - Will not pursue medication initiation at this time, but patient would benefit from additional time on the unit and ongoing therapeutic intervention - Pt does have a therapy appointment scheduled at [facility] 04/24 Risk Factors Assessment Male: Yes : Yes Do You Have Access To A Gun?: No Health Problems: No Mental Health Diagnoses: Yes Substance Use Disorders: No Previous Attempt: Yes Previous Attempt; Highly Lethal: No Previous Attempt; Planned: No Previous Attempt; Didn't Tell Anyone: No Family History of Suicide: No Previous Psychiatric Hospitalization: Yes Hopelessness: No Smoker: No Protective Factors Assessment Yazidism Beliefs: No : Yes Responsible for Young Children: No Employed: No Stable Relationships: Yes Supportive Family: Yes Good Rapport with Provider: No Absence of Any Risk Factors Above: No Interval History Identifying Information EMMA GONZALEZ is a 28-year-old M who currently lives in [place] with his . He reports a past history of adjustment disorder symptoms, and was admitted on 04/17/19 18:44 on a 201 voluntary agreement after he told a counselor that he had had thoughts of acquiring a gun and shooting himself. Pt signed a 72-hour notice which expires 04/22/19 at 10:00. Chief Complaint "I am fine. Doing very well. How are you?" Review of Systems Notes Constitutional: denied Cardiovascular: denied Respiratory: denied Gastrointestinal: denied Neurological: denied Psychiatric: denies symptoms other than stated above Total of at least 10 systems reviewed, pertinent positives as above and in HPI. Sleep Information Total Hours of Sleep: 7.5 Sleep Comments: pt on q-15 minute checks Meal Information Percent Meal Consumed - Breakfast: 100 Percent Meal Consumed - Lunch: 100 Percent Meal Consumed - Dinner: 100 Subjective Subjective Patient was seen & assessed and interval progress reviewed with nursing and social work. Pt submitted a 72-hour notice, which expires 04/22/19 at 10:00. Staff reports the patient has been refusing groups and continues to appear in denial about how he will manage future failures. Pt had a meeting with his yesterday, who remains supportive. Pt was seen today to assess progress since admission. Pt states that he is doing very well today. He was asked about the meeting with his , and states he cannot recall any particulars and "I don't really remember the meeting." He was not able to recall anything productive that was discussed, but simply states "she's supportive." Pt requests to leave today and was informed that this would not be happening. He states that he is not benefiting from being here and wants to know "what is the criteria for dis charge, just that I'm not a harm to myself or others?" Discharge criteria was explained to the patient, in addition to the need for time to demonstrate that he has made changes to how he will approach difficulties in the future. Pt was asked about suicidality, and stated to this provider "you know, there are studies that say that one third of new mothers have thoughts to kill their babies. And you know what? They aren't all imprisoned." When asked why he has not been attending groups, he states, "they are not benefiting me, I read psychology books and they are a lot more reliable that what you talk about here." Pt continued to verbalize multiple negative comments about his treatment here, but remains unable to provide this PA with positive reasoning as to why he would be appropriate for discharge. He was informed that treatment team would occur tomorrow morning and we would then have a better sense of a discharge date. Physical Exam Psychiatric Orientation: alert, oriented x 3 and + guarded (mildly unpleasant) Apperance: appropriately dressed (casually, in sweater and jeans), appropriately groomed and appeared stated age Eye Contact: good eye contact Motor Behavior: steady gait and station and no abnormal motor movements Speech: normal rate/rhythm/volume of speech Affect: + irritable affect and mood congruent with affect Mood: + irritable mood ("I'm fine, I don't need to be held prisoner here") Thought Process: goal directed thought process and clear/coherent thought process Cognition: attention grossly intact and language grossly intact Insight: + poor insight Judgement: + poor judgement Vital Signs (Past 24 Hours) Last Vital Signs Temp 36.5 C 04/20/19 07:08 Pulse 96 H 04/20/19 07:09 Resp 18 04/20/19 07:08 BP 128/81 04/20/19 07:09 Pulse Ox 97 04/17/19 20:36 Results & Data Current Inpatient Medications Current Inpatient Medications: Current Inpatient Medications Acetaminophen (Tylenol) 650 mg PO Q4H PRN PRN Reason: Headache or Minor Fever Stop: 05/17/19 18:43 Al Hydrox/Mg Hydrox/Simethicone (Maalox) 30 ml PO Q4H PRN PRN Reason: GI Upset Stop: 05/17/19 18:43 Bismuth Subsalicylate (Kaopectate) 15 ml PO PRN PRN PRN Reason: Loose Stool Stop: 05/17/19 18:43 Hydroxyzine HCl (Vistaril) 50 mg PO HSZ PRN PRN Reason: Insomnia Stop: 05/17/19 18:43 Hydroxyzine HCl (Vistaril) 25 mg PO Q4H PRN PRN Reason: Anxiety Stop: 05/17/19 18:43 Magnesium Hydroxide (Milk Of Magnesia) 30 ml PO DAILY PRN PRN Reason: Constipation Stop: 05/17/19 18:43 Sodium Chloride ([place] Nasal) 1 - 2 sprays NA PRN PRN PRN Reason: Nasal Dryness/Congestion Stop: 05/17/19 18:43 Mental Health & Subst Abuse Tx Therapist Name of Therapist: Zion Robb PhD, [facility] 5th floor [facility] Therapist's Date of Therapist Appointment: 04/24/19 Time of Therapist Appointment: 9am Therapy Appointment Comment: VERENICE stressed that it is imperative that you keep appt Range Examiner Name of Range Examiner: Adore Bazzi [facility] Phone Number for Range Examiner: [phone] Case Management Appointment Comment: As needed Post Discharge Appointments Primary Care Physician Name Of Family Doctor: [facility] Provider Appointment Comment: As needed Contact Information Discharge Discharge Address: [address] [place] [address] CPT Code CPT Code 25577
--- NOTE | 2019-04-21 09:57 | Discharge Summary ---
Date of Service April 21, 2019 History of Present Illness The patient is a 28 y/o male who presented to the emergency department for a mental health evaluation [facility]. The patient notes that he had disclosed to a counselor at [facility] that he had been having thoughts of suicide. These thoughts included thoughts of acquiring a gun and shooting himself. The patient reports that he has not been feeling depressed, but he has been feeling overwhelmed and expresses difficulty adjusting to a series of life stressors. He is currently a senior in chemical engineering at [employer] and notes that throughout his academic career he has maintained a grade point average that has been on the top 2% of his class. However, during the current (fall) semester, he made a decision to focus less on schoolwork and more heavily on applying for a job. He notes that he set out approximately 80 applications and was not offered a single interview. Separately, at a "job fair," the patient was offered 3 interviews. 2 of the interviews were for jobs that he felt were not suitable, and the third interview was, in fact, for a job that he really wanted. However, he was not selected. As a result of his focus on applying for jobs he ended up doing poorly in 1 of his classes and is now feeling very discouraged because he not only did not secure a job that he managed to diminish his grade point average and class standing. Complicating the above referenced situational difficulty is the fact that he is fairly heavily in debt to his family and to financial institutions because of the high cost of his education. The patient's family lives in [place], and because of the current political and economic climate the exchange weight has become unfavorable so that his family is having to spend a higher percentage of their income to support him and his college career. Further, the family's business an [employer] is not doing well which adds additional financial stress to the family. The patient is , and his 's parents are helping with certain expenses, such as his 's tuition fees. However, within the above context the patient is feeling a great deal of pressure to find a job and be in a position to support himself and in a position to start paying back some of his debt. 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 An additional stressor is that the patient feels that he would be unable to return to live in [place] for a number of reasons, including the fact that he is not advent and has a number of issues with the cultural norms in [place] at the present time. The patient acknowledges that approximately 7 while he was still living in [place], he took a deliberate overdose of blood pressure medications. He attributes this behavior to immaturity and situational difficulties. He also reports that at around the same time he cut his wrist as part of a suicide attempt. However, he notes that, for the most part, his life has been going well until recently. He is happily and enjoys life Physical Exam Psychiatric Orientation: alert, oriented x 3 and cooperative Apperance: appropriately dressed, appropriately groomed and appeared stated age Eye Contact: good eye contact Motor Behavior: steady gait and station and no abnormal motor movements Irritable edge when discussing his hospitalization. Speech: normal rate/rhythm/volume of speech Affect: euthymic affect "I'm good." Thought Process: goal directed thought process Some circular reasoning when discussing why he was hospitalized, for example stating he endorsed thoughts about suicide to staff, stating he "really e mphasized it," but then blaming others' "poor judgment" for his hospitalization. Thought Content: + cognitive distortions Suicidal Thoughts: denies suicidal thoughts Homicidal Thoughts: denies homicidal thoughts Cognition: attention grossly intact and language grossly intact Estimated Intelligence: consistent with education level Insight: + limited insight Judgement: + fair judgement Vital Signs (Past 24 Hours) Last Vital Signs Temp 36.5 C 04/21/19 07:00 Pulse 116 H 04/21/19 07:00 Resp 18 04/21/19 07:00 BP 127/88 04/21/19 07:00 Pulse Ox 97 04/17/19 20:36 Principal Diagnosis Adjustment disorder with mixed anxiety and depressed mood Psychiatric Data The patient was hospitalized for 4 days. On admission, he was diagnosed with adjustment disorder, and he declined medication, stating his goal was to secure accommodations in order to preserve his standing at the [employer]. He stated that he was exaggerating his suicidal thoughts when discussing his situation at [facility] with the hope of achieving secondary gain (a medical excuse for the course that he was failing). Although he reported a history of self-injurious behavior, he stated that it last occurred more than 7 years ago. The licensed social worker contacted [facility] to coordinate with the therapist there, who reported a high level of concern and were concerned about premature discharge. The therapist showed that the patient was emphatic about his right to purchase a gun and made very clear suicidal statements. They did agreed to provide outpatient therapy for the patient upon discharge, and that was arranged. The patient became very upset when he was not immediately discharged at his request, and submitted a 72-hour notice. He made provocative and derogatory statements about hospital and Staff, refer to the hospital as "a senior living," and refused to attend any further groups. He was noted to eat and sleep well, and was focused on discharge. He had a family meeting with his and the licensed social worker on 04/19/2019. He was angry and remained focused on discharge, repeatedly arguing his reasons that he should be discharged immediately, blaming others for his hospitalization, and stating he would be as negative as possible while in the hospital. He had to be repeatedly redirected regarding the goals of the meeting, and was advised of the information received from's given the high level of concern and risk based on his statements there prior to admission. His was passive, tearful, indicated concerns that did not provide much information about the patient's recent behavior. She was aware that he had researched purchasing a gun, but was not aware of his thoughts to use the gun to kill himself. She reported he had been under a lot of pressure and has had difficulty handling disappointment (had hoped for a particular job but did not get it). 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 The licensed social worker attempted to discuss his previous suicide attempts, which he stated were because of feeling he had limited options and was in a system that he did not belong in. He did state that therapy had been helpful in the past and that he was willing to continue in therapy at [facility]. He said he did not plan to purchase health insurance until he gets a job. His clarified there were no weapons in the home, and recommendations were reviewed that they not bring a gun into the home at this point in time. The patient indicated that the unit programming was beneath him and he did not feel he should have to attend. He wa s encouraged to give the groups a chance and try to gain something positive from his treatment and to work on his patient handbook. He continued to refuse groups throughout his stay, and spent his time doing puzzles. He told staff he knows everything about psychiatry because he read books about it. He consistently denied suicidal thoughts. Day of Discharge Assessment Patient reports he is spending his time "trying to distract myself from being in a senior living." He makes multiple derogatory statements about staff at [facility] and in the hospital, maintains that he was never "planning" to kill himself, and blaming others for his hospitalization, calling them "ridiculous" and referencing their "poor judgment." He admits to making suicidal statements and says that he "was under pressure and wanted to bring attention to the pressure I was under, so I really exaggerated it." He states that he does not believe he would ever try to take his life because "I respect myself." He states mood has improved and he feels more able to handle his stressors, and his plan is to do that by putting less pressure on himself. He also reports distraction helps, and he frequently reads about business or self-help books for fun. He describes his mood is "I'm good," and denies any safety concerns. He states that being in the hospital is making him feel worse, as he is worried about missing more school and getting further behind. He is willing to meet with the office of student care and advocacy and to attend therapy appointments at [facility], but states he hopes he does not have a woman therapist because "I'm not sexist, but I can't trust another woman psychologist." Transition of Care Transition Of Care Record: was reviewed with the patient Advance Directives Advance Directives Information Provided: Yes Advance Directives: No Mental Health Advance Directive: No Advance Directives on File: No Living Will: No Power of Chair Upholsterer: No Advance Directives Reason:: Declines as Mental Health Visit. Risk Factors Assessment Male: Yes : Yes Do You Have Access To A Gun?: No Health Problems: No Mental Health Diagnoses: Yes Substance Use Disorders: No Previous Attempt: Yes Previous Attempt; Highly Lethal: No Previous Attempt; Planned: No Previous Attempt; Didn't Tell Anyone: No Family History of Suicide: No Previous Psychiatric Hospitalization: Yes Hopelessness: No Smoker: No Protective Factors Assessment Synagogue Beliefs: No : Yes Responsible for Young Children: No Employed: No Stable Relationships: Yes Supportive Family: Yes Good Rapport with Provider: No Absence of Any Risk Factors Above: No Tobacco Cessation at Discharge Tobacco Cessation Medication Prescribed at Discharge: Not Applicable/Non-Smoker Total Time Total Time Spent: Greater Than 30 Minutes Total Time Includes: Examination of the patient, Discharge Planning and Medication Reconciliation Discharge Data Lab Results 04/17/19 04/17/19 04/17/19 12:06 12:06 12:35 WBC 4.55 L RBC 5.18 Hgb 16.1 Hct 43.7 MCV 84.4 MCH 31.1 MCHC 36.8 H RDW Std Deviation 35.9 L RDW Coeff of Thomas 11.7 Plt Count 251 MPV 10.6 H Immature Gran % (Auto) 0.2 Neut % (Auto) 52.8 Lymph % (Auto) 38.9 [place] % (Auto) 7.0 Eos % (Auto) 0.4 Baso % (Auto) 0.7 Immature Gran # (Auto) 0.01 Neut # (Auto) 2.40 Lymph # (Auto) 1.77 [place] # (Auto) 0.32 Eos # (Auto) 0.02 Baso # (Auto) 0.03 RBC Morphology Unremarkable Sodium Potassium Chloride Carbon Dioxide Anion Gap BUN Creatinine Est Cr Clr Drug Dosing Est GFR ( Amer) Est GFR (Non-Af Amer) BUN/Creatinine Ratio Glucose Calcium Total Bilirubin AST ALT Alkaline Phosphatase Total Protein Albumin Globulin Albumin/Globulin Ratio TSH Urine Color Yellow Urine Appearance Clear Urine pH 8.0 H Ur Specific Ranger 1.010 Urine Protein Negative Urine Glucose (UA) Negative Urine Ketones Negative Urine Blood Negative Urine Nitrite Negative Urine Bilirubin Negative Urine Urobilinogen Negative Ur Leukocyte Esterase Negative Salicylates Urine Opiates Screen Neg Ur Methadone, Qual Neg Acetaminophen Urine Barbiturates Neg Ur Phencyclidine (PCP) Neg U Amphetamin/Meth Scrn Neg MDMA (Ecstasy) Screen Neg U Benzodiazepines Scrn Neg Ur Cocaine Metabolite Neg U Marijuana (THC) Screen Neg Ethyl Alcohol mg/dL 04/17/19 04/17/19 04/17/19 12:35 12:35 12:35 WBC RBC Hgb Hct MCV MCH MCHC RDW Std Deviation RDW Coeff of Thomas Plt Count MPV Immature Gran % (Auto) Neut % (Auto) Lymph % (Auto) [place] % (Auto) Eos % (Auto) Baso % (Auto) Immature Gran # (Auto) Neut # (Auto) Lymph # (Auto) [place] # (Auto) Eos # (Auto) Baso # (Auto) RBC Morphology Sodium 137 Potassium 3.4 L Chloride 103 Carbon Dioxide 27 Anion Gap 7.0 BUN 10 Creatinine 0.83 Est Cr Clr Drug Dosing 155.5 Est GFR ( Amer) 137.8 Est GFR (Non-Af Amer) 118.9 BUN/Creatinine Ratio 12.0 Glucose 89 Calcium 9.1 Total Bilirubin 0.6 AST 27 ALT 54 Alkaline Phosphatase 72 Total Protein 8.0 Albumin 4.3 Globulin 3.7 Albumin/Globulin Ratio 1.2 TSH 2.130 Urine Color Urine Appearance Urine pH Ur Specific Ranger Urine Protein Urine Glucose (UA) Urine Ketones Urine Blood Urine Nitrite Urine Bilirubin Urine Urobilinogen Ur Leukocyte Esterase Salicylates < 1.7 L Urine Opiates Screen Ur Methadone, Qual Acetaminophen < 2 L Urine Barbiturates Ur Phencyclidine (PCP) U Amphetamin/Meth Scrn MDMA (Ecstasy) Screen U Benzodiazepines Scrn Ur Cocaine Metabolite U Marijuana (THC) Screen Ethyl Alcohol mg/dL < 3.0 Hospital Course (1) Suicidal ideations: 04/18/19 -Today, the patient reports that he is not having further thoughts of suicide. He also notes that he was exaggerating his suicidal thoughts when discussing his situation at the [employer] [employer] [facility] student counseling center and the hope of achieving secondary gain; i.e., a medical excuse for the course that he is failing or has failed. -The patient reports that he never had any actual suicidal plan or intent, and says that he reference purchasing a gun because he knew that the guns could be easily purchased in the [place] and had not anticipated that his report in this regard would generate alarm among healthcare providers. - -The patient acknowledges that, in the past, he has engaged in self-injurious behaviors. He notes that these instances occurred more than 7 years ago, under much different circumstances, including the fact that he lacked longer term perspective and, at the time, was much more immature . -The patient is future oriented and clearly identifies long-term goals for the future. 04/19 - Pt denies suicidal ideation at this time, but is unable to explain how is situation has changed or how he plans to handle stressors differently in the future - Based on new information obtained from [facility], it was determined that the risk of discharge today was too great, and that patient continues to be at high risk of harm to himself if he is discharged without adequate mitigation of risk factors 04/20 - Pt denied SI again today (2) Adjustment disorder with mixed anxiety and depressed mood: 04/18/19 -The patient reports the acute onset of depressed mood and anxious distress associated with specific situational stressors. The nature and degree of the patient's depression and anxiety are not consistent with a diagnosis of major depression. At the same time, the patient's distress has been interfering with his ability to concentrate and focus at school. -We discussed various treatment options, including antidepression/antianxiety medications. The patient tells me that his primary goal had been to see if he could secure certain accommodations in order to preserve his class standing at [employer], and the service of remaining "marketable" in terms of finding employment. -After considering options, the patient said that he would prefer to focus on individual counseling and supportive therapy, rather than medications. 04/19 - Agree with above diagnoses; however, risk of harm to self remains high - Will not pursue medication initiation at this time, but patient would benefit from additional time on the unit and ongoing therapeutic intervention - Pt does have a therapy appointment scheduled at [facility] 04/24 Mental Health & Subst Abuse Tx Therapist Name of Therapist: Zion Robb PhD, [facility] 5th floor [facility] Therapist's Date of Therapist Appointment: 04/24/19 Time of Therapist Appointment: 9am Therapy Appointment Comment: [facility] stressed that it is imperative that you keep appt Levelman Name of Levelman: Adore Bazzi CAPS Phone Number for Levelman: [phone] Case Management Appointment Comment: As needed Post Discharge Appointments Primary Care Physician Name Of Family Doctor: [facility] Primary Care Provider Appointment Comment: As needed Smoking Cessation Counseling Tobacco Cessation Medication Prescribed at Discharge: Not Applicable/Non-Smoker Contact Information Discharge Discharge Address: [address] [place] [id number] Discharge Plan Discharge Items Patient Disposition: Home - Self-Care Reason For Visit: MDD Discharge Diagnosis: Adjustment disorder Condition on Discharge: Good Activity: Per Instructions section Non-emergency contact: Therapist Call non-emergency contact if: your symptoms worsen Follow-up/Referrals: PCP,NO [Primary Care Provider] - Diet: Regular Addtl Attending Provider Instructions: SPECIAL CARE INSTRUCTIONS: 1. Follow through with your scheduled aftercare appointments. If unable to keep an appointment, please call to reschedule. 2. You are not on prescribed medications. 3. Utilize new healthy coping skills, anger management skills, and stress management skills learned during your hospitalization. Journal feelings and process them with a support person. Identify stressors or situations that may result in relapse, deterioration or inappropriate behaviors and develop a plan to deal with those issues. 4. If your coping skills are ineffective and you are in crisis, contact your outpatient providers for direction. If unable to reach your providers, please call the CAN HELP LINE AT or go to the closest Emergency Room. 5. Avoid alcohol and un-prescribed drugs. 6. You have been provided with the Mental Health Advance Directives Pamphlet for your review. AFTERCARE APPOINTMENTS: * Please call your insurance company prior to your scheduled appointment to confirm your aftercare providers are covered. Take your insurance information to your ap pointments. WHO TO CALL AND WHEN: Medical Emergencies: For questions or emergencies related to your hospital stay, please contact the Inpatient Behavioral Health Unit at [phone]. A talent management manager is on-call 29/01 for the Behavioral Health Unit for emergencies At any time you feel your situation is an emergency, you may also call 911 immediately. Your Doctors Instructions noted above were prepared by provider Ines Tong MD. Pending Studies at Discharge: No Stand-Alone Forms: My [facility] Medications and DC Order Prescriptions: No Action No Known Home Medications RF: 0 Discharge Orders: Discharge Order (Routine); Ordered 04/21/19 Ordered By: Ines Tong Admission Data Admit Date/Time: 04/17/19 18:44 Attending Provider: Ines Tong Admit Provider: Kelin Avendaño Primary Care Provider: PCP,NO Other Interventions: Discharge Summary Assessment (RN) Last Done: 04/21/19 09:59 PSY Interdisciplinary Discharge Planning Last Done: 04/21/19 10:04 Coding Level of Care Code 93562 D/C day mgmt > 30 min Diagnoses Suicidal ideations R45.851 Adjustment disorder with mixed anxiety and depressed mood F43.23
== END 2019-04-21 10:56 | disposition home or self-care (01) | DRG 882 ==
LOC: ED 11:18 → 3S 18:44